=== PATIENT | male | born 2000 | race American Indian/Alaskan Native ===

== ENCOUNTER 2020-10-03 10:38 | Emergency (ER) | payer SELFPAY ==
[~2020-10-03] VITALS: Ht 182.9 cm; Wt 104.3 kg
[~2020-10-03 10:38] MED LIST: AMOCLA250 PO; AMOX500 PO; CEFA250SU; CEPH250SUA; CODACE30 PO; CYCL10 PO; IBUP600 PO; RXCODACET PO; SULTRIEL PO
== END 2020-10-03 13:20 | disposition home or self-care (01) ==
LOC: ER 10:38
DX: S29.012A Strain of muscle and tendon of back wall of thorax, initial encounter (principal); X58.XXXA Exposure to other specified factors, initial encounter
CPT/HCPCS: 72070; 99283-25

== ENCOUNTER 2022-10-07 06:43 | Emergency (ER) | payer OTHER ==
[~2022-10-07] VITALS: Ht 180.3 cm; Wt 99.8 kg
[2022-10-07] MEDS ORDERED: AMOX500 PO (08:12)
== END 2022-10-07 08:18 | disposition home or self-care (01) ==
LOC: ER 06:43
DX: J02.0 Streptococcal pharyngitis (principal); F17.210 Nicotine dependence, cigarettes, uncomplicated
CPT/HCPCS: 87430; A9270

== ENCOUNTER 2023-01-08 20:19 | Emergency (ER) | payer OTHER ==
[~2023-01-08] VITALS: Ht 180.3 cm; Wt 99.8 kg
[2023-01-08 20:45] LABS: BASOPHILS ABSOLUTE AUTO 0.05 K/mm3 (0.00-0.23); BASOPHILS PERCENT AUTO 0 % (0-2); EOSINOPHILS ABSOLUTE AUTO 0.09 K/mm3 (0.00-0.68); EOSINOPHILS PERCENT AUTO 1 % (0-6); Hematocrit 47.4 % (37.0-53.0); IMMATURE GRAN ABSOLUTE AUTO 0.04 K/mm3 (0.00-0.10); IMMATURE GRAN PERCENT AUTO 0 % (0-1); LYMPHOCYTES ABSOLUTE AUTO 3.03 K/mm3 (0.84-5.20); LYMPHOCYTES PERCENT AUTO 20 % (21-46); MONOCYTES ABSOLUTE AUTO 0.71 K/mm3 (0.16-1.47); MONOCYTES PERCENT AUTO 5 % (4-13); Mean Corpuscular HGB 28.8 pg (26.0-34.0); Mean Corpuscular HGB Conc 33.8 g/dL (31.5-36.5); Mean Corpuscular Volume 85 fL (80-100); Mean Platelet Volume 9.4 fL (9.1-12.4); NEUTROPHILS ABSOLUTE AUTO 10.93 K/mm3 (1.96-9.15); NEUTROPHILS PERCENT AUTO 74 % (41-73); Platelet Count 274 K/mm3 (150-400); RDW Coefficient Variation 12.6 % (11.7-14.2); RDW Standard Deviation 38.9 fL (35.1-46.3); Red Blood Cell Count 5.56 M/mm3 (4.30-5.90); White Blood Cell Count 14.85 K/mm3 (4.00-11.30)
[2023-01-08 21:27] LABS: Albumin, Blood 3.9 g/dL (3.4-5.0); Albumin/Globulin Ratio 0.9 (0.8-1.8); Bilirubin, Total 0.2 mg/dL (0.1-1.0); Bun/Creatinine Ratio 11.9 (12.0-20.0); Calcium, Blood 9.2 mg/dL (8.5-10.1); Creatinine, Blood 0.84 mg/dL (0.60-1.20); Globulin, Blood 4.3 g/dL (2.2-4.0); Total Protein, Blood 8.2 g/dL (6.4-8.2)
[2023-01-08] MEDS ORDERED: ONDA4ODT MM (22:07)
== END 2023-01-08 22:11 | disposition home or self-care (01) ==
LOC: ER 20:19
PROVIDERS: Physician Assistant
DX: R55 Syncope and collapse (principal); B34.9 Viral infection, unspecified; E86.0 Dehydration; R11.0 Nausea; F17.210 Nicotine dependence, cigarettes, uncomplicated
CPT/HCPCS: 80053; 85025; 99284; A9270

== ENCOUNTER 2023-01-09 22:47 | Emergency (ER) | payer OTHER ==
[~2023-01-09] VITALS: Ht 175.3 cm; Wt 83.9 kg
[~2023-01-09 22:47] MED LIST changes: +ONDA4ODT MM
== END 2023-01-10 00:51 | disposition home or self-care (01) ==
LOC: ER 22:47
DX: F41.9 Anxiety disorder, unspecified (principal); K59.00 Constipation, unspecified
CPT/HCPCS: 99283; A9270

== ENCOUNTER → 2023-03-01 | Outpatient (CLI) | payer OTHER ==
[2023-03-01 15:57] LABS: BASOPHILS ABSOLUTE AUTO 0.04 K/mm3 (0.00-0.23); BASOPHILS PERCENT AUTO 0 % (0-2); EOSINOPHILS ABSOLUTE AUTO 0.04 K/mm3 (0.00-0.68); EOSINOPHILS PERCENT AUTO 0 % (0-6); Hemoglobin 17.5 g/dL (13.5-17.5); IMMATURE GRAN ABSOLUTE AUTO 0.05 K/mm3 (0.00-0.10); IMMATURE GRAN PERCENT AUTO 1 % (0-1); LYMPHOCYTES PERCENT AUTO 29 % (21-46); MONOCYTES PERCENT AUTO 5 % (4-13); Mean Corpuscular Volume 83 fL (80-100); Mean Platelet Volume 9.5 fL (9.1-12.4); NEUTROPHILS ABSOLUTE AUTO 7.11 K/mm3 (1.96-9.15); NEUTROPHILS PERCENT AUTO 64 % (41-73); Platelet Count 274 K/mm3 (150-400); RDW Coefficient Variation 12.5 % (11.7-14.2); RDW Standard Deviation 37.2 fL (35.1-46.3); Red Blood Cell Count 6.03 M/mm3 (4.30-5.90); White Blood Cell Count 11.04 K/mm3 (4.00-11.30)
[2023-03-01 17:40] LABS: Albumin, Blood 4.3 g/dL (3.4-5.0); Bilirubin, Total 0.4 mg/dL (0.1-1.0); Bun/Creatinine Ratio 12.6 (12.0-20.0); Calcium, Blood 9.8 mg/dL (8.5-10.1); Creatinine, Blood 0.79 mg/dL (0.60-1.20); Globulin, Blood 4.3 g/dL (2.2-4.0); Total Protein, Blood 8.6 g/dL (6.4-8.2)
== END | disposition home or self-care (01) ==
LOC: LAB SHORT 15:51 → LAB 15:51
PROVIDERS: Emergency Medicine
DX: R11.2 Nausea with vomiting, unspecified (principal)
CPT/HCPCS: 80053; 83690; 85025

== ENCOUNTER 2023-05-06 03:40 | Emergency (ER) | payer OTHER ==
[~2023-05-06] VITALS: Ht 172.7 cm; Wt 72.6 kg
[2023-05-06 03:56] VITALS: BP 129/84
[2023-05-06] MEDS ORDERED: AMITRIPTYLINE H25 MG PO (03:58)
[2023-05-06] MEDS ORDERED: AMIT75 PO (03:59)
[2023-05-07] MEDS ORDERED: PROM25 PO (23:44)
== END 2023-05-06 04:06 | disposition home or self-care (01) ==
LOC: ER 03:40
DX: Z76.0 Encounter for issue of repeat prescription (principal); Z79.899 Other long term (current) drug therapy
CPT/HCPCS: 93005; 93010; 99281-25; A9270

== ENCOUNTER 2023-05-07 21:50 | Emergency (ER) | payer OTHER ==
[~2023-05-07] VITALS: Ht 180.3 cm; Wt 92.1 kg
[~2023-05-07 21:50] MED LIST changes: +AMIT75 PO; +AMITRIPTYLINE H25 MG PO
[2023-05-07 22:01] VITALS: BP 135/82
[2023-05-07] MEDS ORDERED: PROM25 PO (23:44)
== END 2023-05-07 23:43 | disposition home or self-care (01) ==
LOC: ER 21:50
DX: K52.9 Noninfective gastroenteritis and colitis, unspecified (principal); F17.290 Nicotine dependence, other tobacco product, uncomplicated
CPT/HCPCS: 99283

== ENCOUNTER 2023-11-30 12:42 | Day surgery (SDC) | payer OTHER ==
[~2023-11-30] VITALS: Ht 180.3 cm; Wt 117.9 kg
[~2023-11-30 12:42] MED LIST changes: +PROM25 PO
[2023-11-30] MEDS ORDERED: TRAZ50 (12:53)
[2023-11-30 15:13] VITALS: BP 132/78
== END 2023-11-30 14:13 | disposition home or self-care (01) ==
LOC: ORSCSDS 12:42
PROVIDERS: Internal Medicine Gastroenterology
PROC: 0DB98ZX Excision of Duodenum, Via Natural or Artificial Opening Endoscopic, Diagnostic (ICD-10-PCS; principal; 2023-11-30 14:00)
PROC: 0DB68ZX Excision of Stomach, Via Natural or Artificial Opening Endoscopic, Diagnostic (ICD-10-PCS; principal; 2023-11-30 14:00)
DX: R19.4 Change in bowel habit (principal); R11.0 Nausea; R10.13 Epigastric pain; Z87.891 Personal history of nicotine dependence; Z79.899 Other long term (current) drug therapy
CPT/HCPCS: 88305; 88342; J2250; J2704; J7120

== ENCOUNTER 2024-08-18 21:22 | Emergency (ER) | payer OTHER ==
[~2024-08-18] VITALS: Ht 180.3 cm; Wt 108.9 kg
[~2024-08-18 21:22] MED LIST changes: +TRAZ50
[2024-08-18 21:52] LABS: BASOPHILS ABSOLUTE AUTO 0.07 K/mm3 (0.00-0.23); BASOPHILS PERCENT AUTO 1 % (0-2); EOSINOPHILS ABSOLUTE AUTO 0.13 K/mm3 (0.00-0.68); EOSINOPHILS PERCENT AUTO 1 % (0-6); Hematocrit 46.8 % (37.0-53.0); Hemoglobin 15.4 g/dL (13.5-17.5); IMMATURE GRAN ABSOLUTE AUTO 0.07 K/mm3 (0.00-0.10); IMMATURE GRAN PERCENT AUTO 1 % (0-1); LYMPHOCYTES PERCENT AUTO 23 % (21-46); MONOCYTES ABSOLUTE AUTO 0.61 K/mm3 (0.16-1.47); MONOCYTES PERCENT AUTO 5 % (4-13); Mean Corpuscular HGB 27.7 pg (26.0-34.0); Mean Corpuscular HGB Conc 32.9 g/dL (31.5-36.5); Mean Corpuscular Volume 84 fL (80-100); Mean Platelet Volume 8.7 fL (9.1-12.4); NEUTROPHILS ABSOLUTE AUTO 8.92 K/mm3 (1.96-9.15); NEUTROPHILS PERCENT AUTO 70 % (41-73); Platelet Count 313 K/mm3 (150-400); RDW Coefficient Variation 12.8 % (11.7-14.2); RDW Standard Deviation 39.1 fL (35.1-46.3); Red Blood Cell Count 5.56 M/mm3 (4.30-5.90)
[2024-08-18 22:12] LABS: Albumin, Blood 3.9 g/dL (3.4-5.0); Albumin/Globulin Ratio 1.1 (0.8-1.8); Bilirubin, Total 0.3 mg/dL (0.1-1.0); Bun/Creatinine Ratio 7.9 (12.0-20.0); Calcium, Blood 9.1 mg/dL (8.5-10.1); Creatinine, Blood 0.88 mg/dL (0.60-1.20); Globulin, Blood 3.7 g/dL (2.2-4.0); Potassium, Blood 3.6 mmol/L (3.5-5.5); Total Protein, Blood 7.6 g/dL (6.4-8.2)
[2024-08-18] MEDS ORDERED: NS 1,000 ML IV SCH (23:25)
[2024-08-18 23:37] LABS: Source, Urine Clean Catch
[2024-08-18 23:43] LABS: Bilirubin, Urine Neg (Neg); Blood, Urine Neg (Neg); Glucose Qualitative, Urine Neg (Neg); Ketones, Urine Neg (Neg); Leukocyte Esterase, Urine Neg (Neg); Nitrite, Urine Neg (Neg); Protein, Urine Neg (Neg); Specific Gravity, Urine 1.025 (1.003-1.022); Urobilinogen, Urine NORM (Normal)
[2024-08-18 23:50] LABS: Appearance, Urine Clear (Clear); Color, Urine Yellow (P-Yellow)
[2024-08-19 01:00] VITALS: BP 146/91
== END 2024-08-19 01:10 | disposition home or self-care (01) ==
LOC: ER 21:22
PROVIDERS: Emergency Medicine
DX: R55 Syncope and collapse (principal); E86.0 Dehydration; Z68.33 Body mass index [BMI] 33.0-33.9, adult; Z79.899 Other long term (current) drug therapy
CPT/HCPCS: 71046; 80053; 81003; 84484; 85025; 93005; 93010; 99284-25; J7030

== ENCOUNTER 2024-10-21 20:46 | Emergency (ER) | payer OTHER ==
[~2024-10-21] VITALS: Ht 180.3 cm; Wt 104.3 kg
[2024-10-21 21:06] VITALS: BP 154/100
[2024-10-21 22:11] LABS: Influenza A, PCR NEGATIVE (NEGATIVE); Influenza B, PCR NEGATIVE (NEGATIVE); Resp Syncytial Virus, PCR NEGATIVE (NEGATIVE); SARS-Cov-2 (COVID-19) PCR, MMC NEGATIVE (NEGATIVE)
== END 2024-10-21 23:55 | disposition home or self-care (01) ==
LOC: ER 20:46
PROVIDERS: Physician Assistant
DX: J06.9 Acute upper respiratory infection, unspecified (principal); Z79.899 Other long term (current) drug therapy
CPT/HCPCS: 0241U; 87081; 87430; 99283

== ENCOUNTER 2024-11-13 17:20 | Emergency (ER) | payer OTHER ==
[~2024-11-13] VITALS: Ht 180.3 cm; Wt 104.3 kg
[2024-11-13 17:40] VITALS: BP 136/92
[2024-11-13 18:13] LABS: CORONAVIRUS COVID-19 AG Negative (NEGATIVE); INFLUENZA A AG Negative (NEGATIVE); INFLUENZA B AG Negative (NEGATIVE)
[2024-11-13] MEDS ORDERED: Acetaminophen 325 MG TABLET PO ONE (21:35)
== END 2024-11-13 21:40 | disposition home or self-care (01) ==
LOC: ER 17:20
PROVIDERS: Physician Assistant
DX: B34.9 Viral infection, unspecified (principal); Z79.899 Other long term (current) drug therapy
CPT/HCPCS: 87428-QW; 99283; A9270

== ENCOUNTER 2025-06-06 13:51 | Emergency (ER) | payer OTHER ==
[~2025-06-06] VITALS: Ht 180.3 cm; Wt 113.4 kg
[2025-06-06 15:03] LABS: BASOPHILS ABSOLUTE AUTO 0.05 K/mm3 (0.00-0.23); BASOPHILS PERCENT AUTO 0 % (0-2); EOSINOPHILS ABSOLUTE AUTO 0.14 K/mm3 (0.00-0.68); EOSINOPHILS PERCENT AUTO 1 % (0-6); Hematocrit 45.8 % (37.0-53.0); Hemoglobin 15.1 g/dL (13.5-17.5); IMMATURE GRAN ABSOLUTE AUTO 0.08 K/mm3 (0.00-0.10); IMMATURE GRAN PERCENT AUTO 1 % (0-1); LYMPHOCYTES ABSOLUTE AUTO 3.05 K/mm3 (0.84-5.20); LYMPHOCYTES PERCENT AUTO 24 % (21-46); MONOCYTES ABSOLUTE AUTO 0.64 K/mm3 (0.16-1.47); MONOCYTES PERCENT AUTO 5 % (4-13); Mean Corpuscular HGB Conc 33.0 g/dL (31.5-36.5); Mean Corpuscular Volume 84 fL (80-100); NEUTROPHILS ABSOLUTE AUTO 8.79 K/mm3 (1.96-9.15); NEUTROPHILS PERCENT AUTO 69 % (41-73); NRBC ABSOLUTE 0.00 K/mm3 (0.00-0.02); NRBC Auto 0.0 /100 WBC (0.0-0.2); Platelet Count 314 K/mm3 (150-400); RDW Coefficient Variation 13.2 % (11.7-14.2); RDW Standard Deviation 40.6 fL (35.1-46.3)
[2025-06-06 15:28] LABS: Alanine Aminotransfer (ALT/SGP 48.0 U/L (12-78); Albumin, Blood 3.9 g/dL (3.4-5.0); Albumin/Globulin Ratio 0.9 (0.8-1.8); Anion Gap 8.0 mmol/L (3-11); Aspartate Aminotrans (AST/SGOT 23.0 U/L (12-37); Bilirubin, Total 0.3 mg/dL (0.1-1.0); Blood Urea Nitrogen 10.0 mg/dL (8-24); CO2, Blood 28.0 mmol/L (21-32); Calcium, Blood 8.9 mg/dL (8.5-10.1); Chloride, Blood 106.0 mmol/L (98-108); Creatinine, Blood 0.86 mg/dL (0.60-1.20); Globulin, Blood 4.3 g/dL (2.2-4.0); Glucose, Blood 88.0 mg/dL (70-99); Potassium, Blood 3.7 mmol/L (3.5-5.5); Sodium, Blood 138.0 mmol/L (136-145); Total Protein, Blood 8.2 g/dL (6.4-8.2)
[2025-06-06] MEDS ORDERED: ONDA4 PO ×2 (16:23→16:33)
[2025-06-06] MEDS ORDERED: Ondansetron 8 MG SoluTab SL ONE (16:25)
[2025-06-06 16:27] VITALS: BP 139/84
== END 2025-06-06 16:34 | disposition home or self-care (01) ==
LOC: ER 13:51
PROVIDERS: Physician Assistant
DX: R11.0 Nausea (principal); Z79.899 Other long term (current) drug therapy
CPT/HCPCS: 80053; 85025; 93005; 93010; 99284-25; A9270